=== PATIENT | female | born 1980 ===

== ENCOUNTER 2017-07-27 09:40 | Day surgery (SDC) | payer OTHER ==
[2017-07-14 14:04] VITALS: BMI 27.3
[2017-07-27] MEDS ORDERED: Lactated Ringer's 1,000 ML IV ONE ×2 (11:05→11:45)
[2017-07-27] MEDS ORDERED: ceFAZolin IV 1 gm in Dextrose 1 GM/50 ML BAG IVPB ONE (11:08)
--- NOTE | 2017-07-27 11:08 | CP.PCM.PN ---
Subjective - Date & Time of Evaluation Date of Evaluation: 07/27/17 Time of Evaluation: 11:08 - Subjective Subjective: [place] [employer] patient report reviewed, no prior cds. Patient counseled on the risks of addiction, physical or psychological dependence, and overdose associated with opioid drugs and the danger of taking opioid drugs with alcohol and other central nervous system depressants, and cautioned patient on storage and disposal. Objective - Vital Signs/Intake and Output Vital Signs (last 24 hours): Temp Pulse Resp BP Pulse Ox 97.7 F 74 18 106/70 98 07/27/17 09:59 07/27/17 09:59 07/27/17 09:59 07/27/17 09:59 07/27/17 09:59
--- NOTE | 2017-07-27 11:42 | PCM.OP ---
Operative Report - Operative Report Date of Surgery/Procedure: 07/27/17 Time of Surgery/Procedure: 11:39 Surgeon: Nenita Meehan MD Fire Production Operator: Alea ARRIAGA Anesthesia/Sedation: Gen. anesthesia per ET tube Pre-Operative Diagnosis: Abnormal uterine bleeding. Infertility. Endometrial polyps. Submucosal fibroids Post-Operative Diagnosis: Abnormal uterine bleeding. Infertility. Endometrial polyps. Submucosal fibroids Indication for Surgery: Abnormal uterine bleeding, intracavitary masses, infertility, possible endometrial polyp versus submucosal fibroids Operative Findings: Multiple intracavitary endometrial polyps, submucosal fibroids, normal bilateral cornua noted Procedure/Operation Description: 1. Hysteroscopic myomectomy <5 myomas. 2. Hysteroscopic resection of endometrial polyps. Detailed operative report . This is a 36 year-old female with abnormal uterine bleeding, intracavitary masses possibly polyps versus fibroids, long-standing infertility. Proper consent was obtained. Patient was taken to the operating room where general anesthesia was obtained without difficulty. She was prepped and draped appropriately for hysteroscopic removal of endometrial polyps. Patient was placed in dorsal lithotomy position, legs were placed in adjustable Stanford stirrups, and careful attention was placed to avoid hyperflexion or hyperextension of the lower extremities. Saha catheter was inserted under sterile condition. The cervix was grasped with Tenaculumcervix was dilated to allow a hysteroscope to be advanced into the endometrial cavity. Hysteroscope was inserted and multiple intracavitary round lesions/masses possibly polyps versus submucosal fibroids. Multiple polypoid structures were noted near the fundus. The Myosure device was inserted and in a usual fashion the polyps were excised in a meticulous and careful way with excellent hemostasis. On the posterior aspect of the uterine wall more on the patient's right side a submucosal myoma was resected to completion and sent to pathology labeled appropriately. Multiple polyps were resected in similar fashion and sent to pathology labeled appropriately. Survey of the endometrial cavity following the resection showed a patent normal appearing cavity without any intracavitary lesions or masses. At this time to hysteroscope was removed and endometrial distention was reduced. Fluid utilized was normal saline, fluid deficit was measured at 250 mL. Patient tolerated the procedure well and was taken to recovery room in stable condition. Prior to incision. She received prophylactic antibiotics, prior to closure sponge lap and needle count correct 2. Estimated Blood Loss: 5 Blood Replaced: none Sponge/Instrument Count: Sponge lap and needle counts were correct 2 Drains: None Complications: None Specimen: Submucosal fibroid, endometrial polyps Discharge & Condition: Patient will be discharged home once she meets discharge criteria
[2017-07-27] MEDS ORDERED: HYDROmorphone 0.5 mg/0.5 ml ISec IVP PRN (11:47)
--- NOTE | 2017-07-27 11:52 | PCM.SURG1 ---
Surgeon's Initial Post Op Note - Surgeon's Notes Surgeon: Nenita Meehan MD Aerospace Project Manager: Alea ARRIAGA Type of Anesthesia: General Endo, Local Pre-Operative Diagnosis: Endometrial polyps. Intracavitary mass. Abnormal uterine bleeding. Infertility Operative Findings: Multiple intracavitary polyps multiple polyps near the fundus, submucosal fibroid, normal-appearing ra was, normal-appearing endometrial cavity. Post-Operative Diagnosis: Submucosal fibroids. Endometrial polyps. Intracavitary mass. Abnormal uterine bleeding. Infertility Operation Performed: 1. hysteroscopic myomectomy. 2. Hysteroscopic polypectomy. Both procedures were completed utilizing the Myosure device Specimen/Specimens Removed: Submucosal fibroids. Name of atrial polyps Estimated Blood Loss: EBL {In ML}: 5 Blood Products Given: N/A Drains Used: No Drains Post-Op Condition: Good Date of Surgery/Procedure: 07/27/17 Time of Surgery/Procedure: 11:52
[2017-07-27] MEDS ORDERED: Oxycodone/Acetaminophen 5/325 mg Tab PO PRN (12:00)
[2017-07-27 12:05] VITALS: O2SAT 100
[2017-07-27 13:19] VITALS: BP 112/70; PULSE 67; RESP 18; TEMP 98
== END 2017-07-27 14:11 | disposition home or self-care (01) ==
LOC: C.SDS 09:40
PROVIDERS: ATTEND Obstetrics & Gynecology
DX: N84.0 Polyp of corpus uteri (principal); D25.0 Submucous leiomyoma of uterus; N97.9 Female infertility, unspecified
CPT/HCPCS: 58145; 58558; 88305; J0690; J1170; J7120